=== PATIENT | male | born 1990 | race Two or more races ===

== ENCOUNTER 2020-08-18 16:28 | Emergency (ER) | payer SELFPAY ==
[~2020-08-18] VITALS: Ht 162.6 cm; Wt 67.6 kg
[2020-08-18 16:28] VITALS: BP 122/68
--- NOTE | 2020-08-18 17:31 | NUR ---
Fever and chills x2 days; reported temperature 102.2 today, took [id number] Tylenol with Advil
--- NOTE | 2020-08-18 17:31 | NUR ---
The patient states that he does have some family and friends who were diagnosed with COVID-19.
--- NOTE | 2020-08-18 18:07 | NUR ---
PT NOT IN HIS ROOM. ELOPED.
== END 2020-08-18 18:08 | disposition left against medical advice (07) ==
LOC: ER 16:32
DX: R50.9 Fever, unspecified (principal); Z53.21 Procedure and treatment not carried out due to patient leaving prior to being seen by health care provider